=== PATIENT | female | born 1950 | race Caucasian/White ===

== ENCOUNTER 2025-04-26 16:12 | Emergency (ER) | payer MEDICARE, SELFPAY ==
[2025-04-26 16:35] VITALS: BP 170/90; PULSE 103; RESP 16; TEMP 36.9; O2SAT 99; BMI 20.7
--- NOTE | 2025-04-26 16:46 | XR_ITS ---
EXAMINATION: PA lateral chest 2 views TECHNIQUE: Upright PA lateral chest 2 views Date and time: April 26, 2025, 1706 hours INDICATIONS: Fever and shortness of breath beginning last night. FINDINGS: Mild enlargement left ventricle Ectatic thoracic aorta. Mild to moderate elevation right hemidiaphragm. No lobar pneumonia or pulmonary edema. Significant osteopenia, chronic osteoporotic compressions thoracic vertebral bodies IMPRESSION: No lobar pneumonia or pulmonary edema
--- NOTE | 2025-04-26 16:47 | PD.EDRME ---
Rapid Medical Screening Exam RME Arrival date/time: 04/26/25 16:12 74-year-old female presents to the Emergency Department today stating she had outpatient labs done approximately week ago she was told that her potassium is low she is currently being worked up for hepatitis. Patient also reports that she did fever as high as 100 last night Chief Complaint: Recheck/Abnormal Lab/Rx Vital signs: Vital Signs Temperature 98.5 F 04/26/25 16:35 Pulse Rate 103 H 04/26/25 16:35 Respiratory Rate 16 04/26/25 16:35 Blood Pressure 170/90 H 04/26/25 16:35 Pulse Oximetry (%) 99 04/26/25 16:35 Oxygen Delivery Method Room Air 04/26/25 16:35 Vital signs reviewed by provider: Yes Exam: On exam well-appearing does not appear ill or toxic Clinical Impression: Labs and imaging ordered
[2025-04-26 17:11] LABS: Lactate (Lactic Acid) 1.3 mMol/L (0.4-2.0)
[2025-04-26 17:15] LABS: Basophils # (Auto) 0.0 Thou/mm3 (0.0-0.2); Basophils % (Auto) 1 % (0-2.5); Eosinophils # (Auto) 0.0 Thou/mm3 (0.0-0.5); Eosinophils % (Auto) 1 % (0-10); Hematocrit 35.4 % (36.0-46.0); Hemoglobin 11.5 g/dL (12.0-16.0); Immature Granulocytes Auto 0.00 Thou/mm3 (0.00-0.00); Lymphocytes # (Auto) 1.2 Thou/mm3 (1.0-4.8); Lymphocytes % (Auto) 32 % (10-50); Mean Corpuscular HGB Conc 32.5 g/dl (31.0-37.0); Mean Corpuscular Hemoglobin 32.1 pg (25.0-35.0); Mean Corpuscular Volume 99 fL (80-100); Monocytes # (Auto) 0.8 Thou/mm3 (0.0-0.8); Monocytes % (Auto) 21 % (0-12); Neutrophils # (Auto) 1.8 Thou/mm3 (1.8-7.7); Neutrophils % (Auto) 46 % (37-80); Nucleated Red Blood Cell # 0.00 Thou/mm3 (0.00-0.00); Nucleated Red Blood Cell % 0 /100 WBC (0); Platelet Count 131 Thou/mm3 (140-440); RDW Standard Deviation 45.7 fL (36.4-46.3); Red Blood Count 3.58 Miln/mm3 (4.00-5.20); White Blood Count 3.9 Thou/mm3 (3.6-11.0)
[2025-04-26 17:39] LABS: Alanine Aminotransferase 100 U/L (10-49); Albumin, Serum 3.9 gm/dL (3.4-4.8); Albumin/Globulin Ratio 1.1 (1.2-2.2); Alkaline Phosphatase 132 U/L (46-116); Anion Gap 9 (7-16); Aspartate Amino Transferase 107 U/L (0-34); BUN/Creatinine Ratio 35 Ratio (12-20); Bilirubin,Total 0.5 mg/dL (0.3-1.2); Blood Urea Nitrogen 21 mg/dL (9-23); Calcium 8.5 mg/dL (8.3-10.6); Calcium (Corrected) 8.6 mg/dL (8.5-10.1); Carbon Dioxide 26.8 mMol/L (20.0-31.0); Chloride 104 mMol/L (98-107); Creatinine (Component) 0.6 mg/dL (0.6-1.3); Estimated Creatinine Clearance 60.9 mL/min (>60); Globulin 3.5 gm/dL (2.3-3.5); Glucose 82 mg/dL (74-106); Magnesium 1.8 mg/dL (1.6-2.6); Osmolality,Calculated 281 (275-295); Potassium 3.7 mMol/L (3.4-5.1); Procalcitonin 0.17 ng/ml (0.0-0.49); Sodium 140 mMol/L (136-145); Total Protein 7.4 gm/dL (5.7-8.2); eGFR > 60 See Note
[2025-04-26 18:16] LABS: Hepatitis A Antibody IgM Non Reactive (Non React); Hepatitis B Core Antibody IgM Non Reactive (Non React); Hepatitis B Surface Antigen Non Reactive (Non React); Hepatitis C Antibody Reactive (Non React)
--- NOTE | 2025-04-26 20:02 | PD.EDRECHK ---
ED Recheck Abnl Lab Rx-RME/HPI General Chief Complaint: Recheck/Abnormal Lab/Rx Stated Complaint: HIGH POTASSIUM Time Seen by Provider: 04/26/25 18:02 Arrival date/time: 04/26/25 16:12 74-year-old female patient with significant history of untreated hepatitis C, came in for evaluation regarding generalized body weakness which been ongoing for a while.. Patient was noted to have a potassium of 2.9, and was advised to go to the emergency room for possible potassium replacement. No vomiting no fever no chest pain no abdominal pain. RME / HPI RME / HPI narrative: 04/26/25 16:12 74-year-old female presents to the Emergency Department today stating she had outpatient labs done approximately week ago she was told that her potassium is low she is currently being worked up for hepatitis. Patient also reports that she did fever as high as 100 last night Exam: On exam well-appearing does not appear ill or toxic Impression: Labs and imaging ordered Related Data Allergies Allergy/AdvReac Type Severity Reaction Status Date / Time No Known Allergies Allergy Verified 04/26/25 16:15 Review of Systems Review of Systems Narrative Review of Systems: Review of system reviewed and within normal limits except mentioned in HPI ED Exam Narrative Physical exam: VITAL SIGNS: Reviewed. GENERAL APPEARANCE: Alert and interactive, follows commands, no acute distress, HEAD AND FACE: Non-traumatic. ENT: PERRL, pink conjunctivitis, eyelid no trauma, Mucous membrane moist. NECK: Supple, nontender, no nuchal rigidity. CHEST: No tenderness, no crepitus, no paradoxical movement, no retractions. LUNGS: Clear, well ventilated, symmetric, no rales, no wheezing, no ronchi, no stridor, good breath sounds bilaterally. HEART: Regular rate, regular rhythm, no murmur, no gallops. ABDOMEN: Soft, positive bowel sounds, nondistended, no guarding, nontender, no rebound, no masses, RECTAL: Deferred. GENITAL: Deferred. NEUROLOGICAL: Gross motor function intact sensory function intact, Appropriate for age. MUSCULOSKELETAL: low back nontender, full range of motion. EXTREMITIES: Nontender, full range of motion. SKIN: Color pink, dry, no rash, no lacerations, no abrasions, no contusions. LYMPHATICS: Deferred. Course Quality Measures none Orders Category Date Time Status Bedside COVID-19 Antigen Test NOW Care 04/26/25 16:46 Active Bedside Influenza A&B Antigen Test NOW Care 04/26/25 16:46 Completed XR chest 2V Stat Exams 04/26/25 16:46 Completed Blood Culture (Lab) Stat Lab 04/26/25 16:55 Received CBC Stat Lab 04/26/25 16:55 Completed Comprehensive Metabolic Panel Stat Lab 04/26/25 16:55 Completed Hepatitis Acute Panel Stat Lab 04/26/25 16:55 Completed Lactate (Lactic Acid) Stat Lab 04/26/25 16:55 Completed Mag [Magnesium] Stat Lab 04/26/25 16:55 Completed Procalcitonin Stat Lab 04/26/25 16:55 Completed Vital Signs Vital signs: Vital Signs Temperature 98.5 F 04/26/25 16:35 Pulse Rate 103 H 04/26/25 16:35 Respiratory Rate 16 04/26/25 16:35 Blood Pressure 170/90 H 04/26/25 16:35 Pulse Oximetry (%) 99 04/26/25 16:35 Oxygen Delivery Method Room Air 04/26/25 16:35 Recheck / Abnormal Lab / Rx MDM Narrative MDM Narrative:: 74-year-old female patient with significant history of untreated hepatitis C, came in for evaluation regarding generalized body weakness which been ongoing for a while.. Patient was noted to have a potassium of 2.9, and was advised to go to the emergency room for possible potassium replacement. No vomiting no fever no chest pain no abdominal pain. Patient's potassium today was noted to be 3.7 which is normal, CBC came back unremarkable. Chest x-ray came back unremarkable results discussed with the patient and family. Patient was advised to follow-up with PCP for her hepatitis C treatment outpatient. She is stable for discharge home she is ambulatory Patient data External records reviewed:: None Clinical information provided by:: patient and family Social determinants that could affect healthcare access:: none Patient has the following chronic illnesses:: Hepatitis C How is presenting disease/condition affected by chronic disease/condition?: exacerbated by Evaluation data The following diagnostics were reviewed and interpreted by me:: lab results and radiology exam(s) Lab and/or radiology exams considered but not ordered:: None Interpretation Summary: See above Medications / Prescriptions Medications or Prescriptions considered but not ordered:: None Medication administrations:: none Consultations Consultation(s) initiated? (list below): No Diagnosis Recheck Differential Diagnosis: other (Hypokalemia, generalized weakness, pleural effusion) Most likely diagnosis given after review of the tests above:: Generalized weakness Admission Indicated Admission indicated?: not indicated Admission Request Was there a request for admission?: No Disposition Plan Disposition Plan: Discharge Discharge Attestation Discharge Attestation: The patient and all family members were given an opportunity to ask questions and understood the discharge instructions. Discharge instructions specifically effects, indications for sooner follow up or return to the emergency department, and the expected course of current diagnosis. Patient condition: Stable Discharge Plan Plan Patient Disposition: HOME (Self Care) Discharge Disposition comment: Stable Prescriptions/Referrals Referrals: Clement Mills MD [Primary Care Provider, Family Practice] - In 1 week Problem List Clinical Impression: Weakness generalized Patient/Caregiver Discharge Instructions Discharge Activity: activity as tolerated Education Materials: ED Weakness (Uncertain Cause) Additional Instructions: Thank you for the opportunity for serving you today. You are stable for discharged . You are advised to: Follow-up with your PCP in 1 to 2 days Return to ED for worsening of symptoms Your potassium today was noted to be 3.7 which is normal, your CBC did not show any sign of leukopenia, it is normal at 3.9. Your chest came back normal no fluid in the lung You need to ask your PCP to refer you to a liver specialist regarding your hepatitis C for treatment outpatient Print Language: Bel[place]ian Stand Alone Forms: [employer] Award Info., Patient Portal Info Letter JOSE ANGEL/CARITO Supervising Physician JOSE ANGEL/CARITO Supervising Physician: MD Sonu
== END 2025-04-26 20:08 | disposition home or self-care (01) ==
PROVIDERS: Nurse Practitioner Primary Care; Emergency Provider Emergency Medicine; PCP Family Medicine
DX: R53.1 Weakness (principal); R50.9 Fever, unspecified; R06.02 Shortness of breath
CPT/HCPCS: 36415; 71046; 80053; 80074; 81001; 83605; 83735; 84145; 85025; 87040; 87086; 87502; 87635; 99283

== ENCOUNTER → 2025-05-01 | Outpatient (CLI) | payer MEDICARE, BC, SELFPAY ==
--- NOTE | 2025-05-01 13:00 | XR_ITS ---
Examination: CT abdomen, without intravenous contrast. CT abdomen, with intravenous contrast. Sagittal and coronal 2-D reconstructions. Time of exam: May 01, 2025, 1536 hours INDICATIONS: Generalized abdominal pain several days CTDI: vol (mGy) 19.6 DLP: (mGycm) 519 Technique: Multiple 3.0 mm axial noncontrast images of the abdomen have been obtained. Multiple 3.0 mm axial images post administration 75 cc Isovue 370 intravenous contrast have been obtained. Sagittal and coronal 3-D reconstructions have been obtained. Low dose protocols were performed. One or more of the following dose reduction techniques were used; automated exposure control, adjustment of the mA and/or KV according to patient size, use of iterative reconstruction technique. Findings: Diffuse fatty infiltration throughout the liver, no visualized liver or splenic lesions No gallstones No pancreatic mass Moderate renal scar formation No renal or ureteral calculi, no hydronephrosis Abdominal aorta is not enlarged Large amounts of stool throughout the colon No obstruction No diverticulitis IMPRESSION: Constipation No bowel obstruction Moderate bilateral renal parenchymal scar formation
== END | disposition home or self-care (01) ==
PROVIDERS: PCP Physician Assistant Medical; Referring Provider Internal Medicine Gastroenterology; Visit Provider Internal Medicine Gastroenterology
DX: K59.00 Constipation, unspecified (principal); N28.89 Other specified disorders of kidney and ureter
CPT/HCPCS: 74170; A4649; Q9967